=== PATIENT | male | born 1960 | race Caucasian/White ===

== ENCOUNTER → 2017-02-26 | Outpatient (CLI) | payer BC ==
[2015-12-19 14:37] VITALS: BP 157/86
--- NOTE | 2017-02-26 17:11 | RAD ---
Cervical spine, 5 views, 02/26/2017: History: Chronic neck pain The cervical vertebral heights are well-maintained. There is mild disc space narrowing with moderate marginal spurring throughout the mid and lower cervical spine. There are moderate degenerative changes involving multiple facet joints bilaterally. The combination of findings is causing mild foraminal encroachment at several levels, greatest on the right at C6-7. IMPRESSION: 1. Moderate multilevel degenerative change. 2. No acute bony abnormality is detected.
== END | disposition home or self-care (01) ==
LOC: RAD 16:18
PROVIDERS: ATTEND Psychiatry & Neurology Neurology
DX: M47.892 Other spondylosis, cervical region (principal)
CPT/HCPCS: 72050

== ENCOUNTER → 2018-03-18 | Outpatient (CLI) | payer BC ==
[2015-12-19 14:37] VITALS: BP 157/86
[~2018-03-18] MED LIST: REGADENOSON 0.4 MG/5 ML DISP.SYRIN. IV ONE
--- NOTE | 2018-03-18 11:37 | RAD ---
MR#: [id number] Date of Study: 03/18/2018 Ordering Physician: ANA GROVER, Referring Physician: MITCH JEFFERSON Tech: RT Mauricio Dillon) (N) APPROVED REPORT Test Type: Pharmacological Stress Nurse/Tech: RT Wilma (Toya) (N) Test Indications: chest tightness for 2 weeks Cardiac History: hypertension Medications: atenolol, 81mg Aspirin Medical History: hypertension Resting ECG: Sinus noel, early transition, non specific ST/T changes Resting Heart Rate: 57 bpm Resting Blood Pressure: 147/81mmHg Pretest Chest Pain: None Nurse/Tech Notes Consent: The procedure was explained to the patient in lay terms. Informed consent was witnessed. Frank eout was entered into [facility]. History and Stress Test performed by RT Wilma (Toya) (N) Pharm. Details Pharmacologic stress testing was performed using 0.4mg per 5ml of regadenoson given intravenously ove r 7-10 seconds. Stress Symptoms short of breath resolved with completion of lexiscan POST EXERCISE Reason for Termination: Infusion complete Max HR: 80 bpm Max Blood Pressure: 151/73mmHg Chest Pain: No. INTERPRETATION Stress EKG Conclusion: The resting EKG shows a sinus rhythm with nonspecific ST-T wave changes. The stress EKG shows no significant changes from baseline. No EKG evidence of stress-induced ischemia. Imaging Protocol IMAGE PROTOCOL: Rest Tc-99m/stress Tc-99m 1 day Rest: Stress: Viability: Radiopharm.Tc99m [id number] Sestamibi Dose11.2mCi 33.7mCi Duration 20min. 15min. Img Date 03/18/2018 03/18/2018 Inj-Img [id number]. 60min. Rest Admin Site:IV - Right HandAdministrator: RT Mauricio Dillon)(N) Stress Admin Site: IV - Right HandAdministrator: RT Mauricio Dillon)(N) STRESS DATA End Diast. Vol.118.0mlAv. Heart Rate74.0bpm LVEDV index BSA2.0mlCardiac Output0.1L/min End Syst. Vol.33.0mlCO Index BSA6.3L/min LVESV index BSA0.0mlMyocardial Kzgz774.0g Eject. Cccrwbel42.0% Stress Rates Pk. Fill Rate3.31EDV/secLVtime Pk. Fill 218.53msec Pk. Empty Rate4.27ESV/secLVtime Pk. Ptjbi997.42msec 1/3 Pk. Fill1.51EDV/sec Stress Scores Regional WT0.00Summed WT1.00 Regional WM0.00Summed WM1.00 LV Perfusion The stress scans show a small anterior septal defect and mild inferiorwall thinning. The rest scans show no significant defects. Nuclear imaging suggestive of a small area reversible ischemia in the anteroseptal wall. Possible mil d inferior wall ischemia. Wall Motion Left ventricular systolic function is normal with an ejection fraction of greater than 70%. LV Perf. Quant 17 Seg. SSS7.00 17 Seg. SRS2.00 17 Seg. SDS5.00 Stress Defect Extent (% LAD)10.60Rest Defect Extent (% LAD)0.00Rev. Defect Extent (% LAD)8.10 Stress Defect Extent (% LCX) 46.30Rest Defect Extent (% LCX)0.00Rev. Defect Extent (% LCX)32.50 Stress Defect Extent (% RCA)0.00Rest Defect Extent (% RCA)0.00Rev. Defect Extent (% RCA)0.00 Stress Defect Extent (% PHILLIP)11.70Rest Defect Extent (% PHILLIP)0.00Rev. Defect Extent (% PHILLIP)8.50 Conclusion 1. No EKG evidence of stressed induced ischemia. 2. Nuclear imaging shows a small area of reversible ischemia in the anterior septal region. 3. Nuclear imaging shows possible mild reversible ischemia in the inferior wall. 4. Left ventricular systolic function is normal with an ejection fraction of greater than 70%. 5. Moderate to moderately high risk Lexiscan nuclear stress test. Signed by : Facundo Gould MD Electronically Approved : 03/18/2018 11:35:59
== END | disposition home or self-care (01) ==
LOC: NM 07:29
PROVIDERS: ATTEND Internal Medicine Cardiovascular Disease
DX: R07.89 Other chest pain (principal); I10 Essential (primary) hypertension; Z79.01 Long term (current) use of anticoagulants
CPT/HCPCS: 78452; 93017; 96374; 96375; 96376; A9500; J2785

== ENCOUNTER → 2018-05-20 | Day surgery (SDC) | payer BC ==
[~2018-05-20] MED LIST changes: +ALBUTEROL SULFATE 2.5 MG/3 ML NEBU. NEB PRN; +ATROPINE 0.5 MG/5 ML DISP.SYRIN. IV PRN; +IV RINGERS SOLUTION,LACTATED 1,000 ML IV SCH; +LIDOCAINE 2% PF Vial for OR 5 ML VIAL. ONE; +NALOXONE 0.4 MG/ML VIAL. IV PRN; +ONDANSETRON PF 4 MG/2 ML VIAL. IV PRN; +PROPOFOL 40 ML IV ONE; -REGADENOSON 0.4 MG/5 ML DISP.SYRIN. IV ONE
[2018-05-20 08:55] VITALS: BP 122/77
== END | disposition home or self-care (01) ==
LOC: EDBD 07:04 → SURG 07:04
PROVIDERS: ATTEND Internal Medicine Gastroenterology
DX: Z12.11 Encounter for screening for malignant neoplasm of colon (principal)
CPT/HCPCS: J2704; J7120; 45378; J2001